=== PATIENT | female | born 1935 | race Caucasian/White ===

== ENCOUNTER 2023-10-04 14:10 | Outpatient (CLI) | payer MEDICARE, SELFPAY ==
[2023-10-04 18:42] LABS: Basophils Percent Auto 0.4 % (0.2-1.2); Eosinophils Absolute Auto 0.2 K/mm3 (0-0.3); Eosinophils Percent Auto 1.7 % (0-4.4); Hematocrit 37.3 % (37.0-47.0); Hemoglobin 11.3 g/dL (12.0-15.0); Immature Granulocyte Absolute 0.03 K/mm3 (0.00-0.031); Immature Granulocyte Percent A 0.3 % (0-0.5); Lymphocytes Absolute Auto 2.18 K/mm3 (0.9-3.2); Lymphocytes Percent Auto 20.4 % (18.3-44.2); Mean Corpuscular HGB Conc 30.3 g/dl (32-36); Mean Corpuscular Hemoglobin 30.3 pg (26-34); Mean Platelet Volume 10.5 fl (7.4-10.4); Monocytes Absolute Auto 0.8 K/mm3 (0.1-0.6); Monocytes Percent Auto 7.1 % (2.6-8.5); Neutrophils Absolute Auto 7.5 K/mm3 (1.3-6.7); Neutrophils Percent Auto 70.1 % (45.5-73.1); Nucleated Red Blood Cells Perc 0.3 % (0.0-0.2); Platelet Count Result 183 k/mm3 (150-375); Red Blood Count 3.73 M/mm3 (4.2-5.4); Red Cell Distribution Width 14.2 % (11.5-14.5); White Blood Count 10.7 K/mm3 (4.5-10.0)
[2023-10-04 19:11] LABS: Alanine Aminotransferase 26 U/L (6-35); Albumin Level 4.6 g/dL (3.5-5.1); Alkaline Phosphatase 88 U/L (38-126); Anion Gap 8 mmol/L (8-16); Aspartate Amino Transferase 73 U/L (14-36); Blood Urea Nitrogen 42 mg/dL (7-17); Calcium 10.1 mg/dL (8.4-10.2); Carbon Dioxide 27 mmol/L (22-30); Chloride 103 mmol/L (98-107); Estimated Glomerular Filt Rate 47; Glucose 91 mg/dL (65-110); Potassium 5.6 mmol/L (3.4-5.0); Sodium 138 mmol/L (137-145)
== END 2023-10-04 14:11 | disposition home or self-care (01) ==
PROVIDERS: PCP Internal Medicine; Visit Provider Nurse Practitioner
DX: D64.9 Anemia, unspecified (principal); I10 Essential (primary) hypertension; E55.9 Vitamin D deficiency, unspecified
CPT/HCPCS: 36415; 80053; 82607; 82728; 84443; 85025

== ENCOUNTER 2023-10-05 10:50 | Outpatient (CLI) | payer MEDICARE, SELFPAY ==
[2023-10-05 11:25] LABS: Basophils Percent Auto 0.6 % (0.2-1.2); Eosinophils Absolute Auto 0.2 K/mm3 (0-0.3); Eosinophils Percent Auto 2.8 % (0-4.4); Hemoglobin 11.7 g/dL (12.0-15.0); Immature Granulocyte Absolute 0.03 K/mm3 (0.00-0.031); Immature Granulocyte Percent A 0.4 % (0-0.5); Lymphocytes Percent Auto 23.6 % (18.3-44.2); Mean Corpuscular HGB Conc 30.8 g/dl (32-36); Mean Corpuscular Hemoglobin 30.5 pg (26-34); Mean Platelet Volume 9.8 fl (7.4-10.4); Monocytes Absolute Auto 0.5 K/mm3 (0.1-0.6); Monocytes Percent Auto 6.4 % (2.6-8.5); Neutrophils Absolute Auto 4.8 K/mm3 (1.3-6.7); Neutrophils Percent Auto 66.2 % (45.5-73.1); Platelet Count Result 169 k/mm3 (150-375); Red Blood Count 3.84 M/mm3 (4.2-5.4); Red Cell Distribution Width 14.2 % (11.5-14.5); White Blood Count 7.2 K/mm3 (4.5-10.0)
[2023-10-05 11:36] LABS: Anion Gap 6 mmol/L (8-16); Blood Urea Nitrogen 37 mg/dL (7-17); Calcium 9.9 mg/dL (8.4-10.2); Carbon Dioxide 32 mmol/L (22-30); Chloride 102 mmol/L (98-107); Estimated Glomerular Filt Rate 52; Glucose 98 mg/dL (65-110); Potassium 4.6 mmol/L (3.4-5.0); Sodium 140 mmol/L (137-145)
[2023-10-05 12:33] LABS: Vitamin D 25 Hydroxy 69.2 ng/mL
[2023-10-05 13:59] LABS: Iron 94 ug/dL (37-170)
[2023-10-05 14:09] LABS: Percent Iron Saturation 26 % (20-50)
== END 2023-10-05 10:51 | disposition home or self-care (01) ==
LOC: ANHLAB 10:53
PROVIDERS: PCP Internal Medicine; Visit Provider Nurse Practitioner
DX: E55.9 Vitamin D deficiency, unspecified (principal); E87.5 Hyperkalemia; I10 Essential (primary) hypertension; D64.9 Anemia, unspecified
CPT/HCPCS: 36415; 80048; 82306; 83540; 83550; 85025

== ENCOUNTER 2023-11-28 11:08 | Outpatient (CLI) | payer MEDICARE, SELFPAY ==
[2023-11-28 11:44] LABS: Cholesterol 129 mg/dL (0-200); HDL Direct 61 mg/dL; Triglycerides 95 mg/dL (<150)
[2023-11-28 11:54] LABS: LDL Cholesterol Direct 52 mg/dL
== END 2023-11-28 11:09 | disposition home or self-care (01) ==
LOC: ANHLAB 11:09
PROVIDERS: PCP Internal Medicine; Visit Provider Internal Medicine Cardiovascular Disease
DX: E78.5 Hyperlipidemia, unspecified (principal)
CPT/HCPCS: 36415; 80061

== ENCOUNTER 2023-12-07 12:16 | Outpatient (CLI) | payer MEDICARE, SELFPAY ==
--- NOTE | 2023-12-07 12:30 | ECHO_ITS ---
Patient Info Name: Germaine Mancia Age: 88 years : 1935 Gender: Female Ht: 62 in Wt: 120 lbs BSA: 1.55 m2 HR: 81 bpm BP: 190 / 90 mmHg Heart Rhythm: Sinus Rhythm Technical Quality: Good Exam Date: 12/07/2023 12:55 PM Exam Location: Echo Lab Patient Status: Outpatient Admit Date: 12/07/2023 Staff Ordering Physician: Neri Page DO Professor Of Marketing: Brent Nunn RDCS Attending Provider: Neri Page DO Referring Physician: Camilo TORO; Exam Type: CA echo doppler color flow Study Info Indications - obstuctive hypertropic cardiomyopathy Complete two-dimensional, color flow and Doppler transthoracic echocardiogram is performed. Summary 1. Complete two-dimensional, color flow and Doppler transthoracic echocardiogram is performed. 2. Left ventricular chamber dimension is normal. 3. Ventricular septum is mildly sigmoid shaped. There is mild resting LOVT obstruction with peak gradient 18 mmHg and mean gradient 13 mmHg suggestive of hypertrophic cardiomyopathy. 4. Left ventricular systolic function is normal, estimated at 60-65%. 5. The left ventricular diastolic function is grade I diastolic dysfunction. 6. E/e' 21 is elevated. 7. There is mild aortic valve sclerosis. 8. There is mild aortic valve regurgitation. 9. The mitral valve has mildly calcified annulus. 10. There is mild mitral valve regurgitation. 11. There is mild tricuspid valve regurgitation. 12. No pulmonary hypertension, estimated pulmonary arterial systolic pressure is 34 mmHg. Left Ventricle E/e' 21 is elevated. Ventricular septum is mildly sigmoid shaped. There is mild resting LOVT obstruction with peak gradient 18 mmHg and mean gradient 13 mmHg suggestive of hypertrophic cardiomyopathy. Left ventricular chamber dimension is normal. Left ventricular systolic function is normal, estimated at 60-65%. The left ventricular diastolic function is grade I diastolic dysfunction. Right Ventricle Right ventricular systolic function is normal and with normal TAPSE 2.7 cm. Right ventricular chamber dimension is normal. Left Atria Left atrial chamber dimension is normal. Right Atria Right atrial chamber dimension is normal. Aortic Valve The aortic valve is trileaflet. There is mild aortic valve sclerosis. There is no aortic valve stenosis. There is mild aortic valve regurgitation. Pulmonic Valve There is no pulmonic regurgitation. Mitral Valve The mitral valve has mildly calcified annulus. There is no mitral valve stenosis. There is mild mitral valve regurgitation. Tricuspid Valve There is mild tricuspid valve regurgitation. No pulmonary hypertension, estimated pulmonary arterial systolic pressure is 34 mmHg. Pericardium/Pleural There is no pericardial effusion. Inferior Vena Cava Normal inferior vena cava with >50% collapse upon inspiration consistent with normal right atrial pressure, 5 mmHg. Aorta The aortic root size at the sinus of Valsalva is normal. Left Ventricular Outflow Tract Name Value Normal LVOT 2D LVOT Diameter 1.8 cm LVOT Doppler LVOT Peak Gradient 15 mmHg LVOT Mean Gradient 10 mmHg LVOT VTI 56 cm LVOT VT
== END 2023-12-07 12:17 | disposition home or self-care (01) ==
LOC: ANHCARD 12:19
PROVIDERS: PCP Internal Medicine; Visit Provider Internal Medicine Cardiovascular Disease
DX: I42.1 Obstructive hypertrophic cardiomyopathy (principal); G95.89 Other specified diseases of spinal cord; I08.3 Combined rheumatic disorders of mitral, aortic and tricuspid valves
CPT/HCPCS: 93306

== ENCOUNTER 2024-02-08 10:23 | Outpatient (CLI) | payer MEDICARE, SELFPAY ==
[2024-02-08 11:30] LABS: Basophils Absolute Auto 0.1 K/mm3 (0.0-0.1); Basophils Percent Auto 0.6 % (0.2-1.2); Eosinophils Absolute Auto 0.4 K/mm3 (0-0.3); Eosinophils Percent Auto 4.3 % (0-4.4); Hematocrit 33.8 % (37.0-47.0); Hemoglobin 10.4 g/dL (12.0-15.0); Immature Granulocyte Absolute 0.04 K/mm3 (0.00-0.031); Immature Granulocyte Percent A 0.4 % (0-0.5); Lymphocytes Percent Auto 16.9 % (18.3-44.2); Mean Corpuscular HGB Conc 30.8 g/dl (32-36); Mean Corpuscular Hemoglobin 30.1 pg (26-34); Mean Platelet Volume 10.4 fl (7.4-10.4); Monocytes Absolute Auto 0.8 K/mm3 (0.1-0.6); Monocytes Percent Auto 8.7 % (2.6-8.5); Neutrophils Absolute Auto 6.2 K/mm3 (1.3-6.7); Neutrophils Percent Auto 69.1 % (45.5-73.1); Platelet Count Result 169 k/mm3 (150-375); Red Blood Count 3.45 M/mm3 (4.2-5.4); Red Cell Distribution Width 14.4 % (11.5-14.5); White Blood Count 8.9 K/mm3 (4.5-10.0)
[2024-02-08 11:41] LABS: Alanine Aminotransferase 26 U/L (6-35); Albumin Level 4.5 g/dL (3.5-5.1); Alkaline Phosphatase 98 U/L (38-126); Anion Gap 7 mmol/L (4-12); Aspartate Amino Transferase 45 U/L (14-36); Bilirubin,Total 0.7 mg/dL (0.2-1.3); Blood Urea Nitrogen 42 mg/dL (7-17); Calcium 9.9 mg/dL (8.4-10.2); Carbon Dioxide 29 mmol/L (22-30); Chloride 103 mmol/L (98-107); Estimated Glomerular Filt Rate 42; Glucose 90 mg/dL (65-110); Potassium 4.5 mmol/L (3.4-5.0); Sodium 139 mmol/L (137-145)
== END 2024-02-08 10:24 | disposition home or self-care (01) ==
PROVIDERS: PCP Internal Medicine; Visit Provider Nurse Practitioner
DX: R19.8 Other specified symptoms and signs involving the digestive system and abdomen (principal); K62.5 Hemorrhage of anus and rectum
CPT/HCPCS: 36415; 80053; 85025

== ENCOUNTER 2024-02-13 14:42 | Outpatient (CLI) | payer MEDICARE, SELFPAY ==
[2024-02-13 15:22] LABS: Basophils Absolute Auto 0.1 K/mm3 (0.0-0.1); Basophils Percent Auto 0.6 % (0.2-1.2); Eosinophils Absolute Auto 0.3 K/mm3 (0-0.3); Hematocrit 32.9 % (37.0-47.0); Hemoglobin 10.4 g/dL (12.0-15.0); Immature Granulocyte Absolute 0.03 K/mm3 (0.00-0.031); Immature Granulocyte Percent A 0.4 % (0-0.5); Lymphocytes Percent Auto 18.2 % (18.3-44.2); Mean Corpuscular HGB Conc 31.6 g/dl (32-36); Mean Corpuscular Hemoglobin 30.8 pg (26-34); Mean Corpuscular Volume 97.3 fl (80-100); Mean Platelet Volume 10.2 fl (7.4-10.4); Monocytes Absolute Auto 0.5 K/mm3 (0.1-0.6); Monocytes Percent Auto 6.5 % (2.6-8.5); Neutrophils Absolute Auto 5.4 K/mm3 (1.3-6.7); Neutrophils Percent Auto 70.3 % (45.5-73.1); Platelet Count Result 167 k/mm3 (150-375); Red Blood Count 3.38 M/mm3 (4.2-5.4); Red Cell Distribution Width 14.5 % (11.5-14.5); White Blood Count 7.7 K/mm3 (4.5-10.0)
== END 2024-02-13 14:43 | disposition home or self-care (01) ==
PROVIDERS: PCP Internal Medicine; Visit Provider Nurse Practitioner
DX: R19.8 Other specified symptoms and signs involving the digestive system and abdomen (principal)
CPT/HCPCS: 36415; 85025

== ENCOUNTER 2024-04-05 12:31 | Outpatient (CLI) | payer MEDICARE, SELFPAY ==
[2024-04-05 18:43] LABS: Basophils Percent Auto 0.6 % (0.2-1.2); Eosinophils Absolute Auto 0.2 K/mm3 (0-0.3); Eosinophils Percent Auto 2.8 % (0-4.4); Hematocrit 33.4 % (37.0-47.0); Hemoglobin 10.4 g/dL (12.0-15.0); Immature Granulocyte Absolute 0.02 K/mm3 (0.00-0.031); Immature Granulocyte Percent A 0.3 % (0-0.5); Immature Reticulocyte Fraction 11.8 % (3.0-15.9); Lymphocytes Absolute Auto 1.34 K/mm3 (0.9-3.2); Lymphocytes Percent Auto 19.1 % (18.3-44.2); Mean Corpuscular HGB Conc 31.1 g/dl (32-36); Mean Corpuscular Hemoglobin 30.4 pg (26-34); Mean Corpuscular Volume 97.7 fl (80-100); Mean Platelet Volume 11.8 fl (7.4-10.4); Monocytes Absolute Auto 0.5 K/mm3 (0.1-0.6); Monocytes Percent Auto 7.3 % (2.6-8.5); Neutrophils Absolute Auto 4.9 K/mm3 (1.3-6.7); Neutrophils Percent Auto 69.9 % (45.5-73.1); Platelet Count Result 138 k/mm3 (150-375); Red Blood Count 3.42 M/mm3 (4.2-5.4); Red Cell Distribution Width 13.9 % (11.5-14.5); Reticulocyte Hemoglobin Conten 33.6 pg (28.2-36.6); Reticulocyte Percent 0.97 % (0.7-4.3); Reticulocytes Absolute 0.03 10^6/uL (0.02-0.10)
[2024-04-05 18:56] LABS: Iron 110 ug/dL (37-170)
[2024-04-05 19:05] LABS: Percent Iron Saturation 28 % (20-50)
[2024-04-05 19:13] LABS: Alanine Aminotransferase 26 U/L (6-35); Albumin Level 4.4 g/dL (3.5-5.1); Alkaline Phosphatase 83 U/L (38-126); Anion Gap 8 mmol/L (4-12); Aspartate Amino Transferase 45 U/L (14-36); Bilirubin,Total 0.5 mg/dL (0.2-1.3); Blood Urea Nitrogen 43 mg/dL (7-17); Calcium 9.8 mg/dL (8.4-10.2); Carbon Dioxide 29 mmol/L (22-30); Chloride 101 mmol/L (98-107); Estimated Glomerular Filt Rate 39; Glucose 81 mg/dL (65-110); Potassium 4.7 mmol/L (3.4-5.0); Sodium 138 mmol/L (137-145)
== END 2024-04-05 12:32 | disposition home or self-care (01) ==
LOC: ANHGOSHLAB 12:33
PROVIDERS: PCP Internal Medicine; Visit Provider Nurse Practitioner
DX: D64.9 Anemia, unspecified (principal); I10 Essential (primary) hypertension
CPT/HCPCS: 36415; 80053; 82728; 83540; 83550; 85025; 85046

== ENCOUNTER 2024-04-10 00:20 | Day surgery (SDC) | payer MEDICARE, SELFPAY ==
[2024-03-27 14:21] VITALS: BMI 22.1
[2024-04-10 11:05] VITALS: BMI 22.4
[2024-04-10 11:08] VITALS: BP 191/79; PULSE 86; RESP 18; TEMP 36.4; O2SAT 96
[2024-04-10] MEDS: LACTATED RINGERS 1,000 ML 150 ML IV CONT (11:11)
--- NOTE | 2024-04-10 11:32 | WPDANESEPPF ---
Anes - Initial Pre Proc Eval Procedure: Operation Date: 04/10/24 12:30 Proposed Procedures p Esophagogastroduodenoscopy - Daryn Steele MD Date/Time: 04/10/24 11:32 Surgeon: Daryn Steele MD Pre Op Diagnosis: GERD without esophagitis, Gastricis unspecified wi Patient Data Age: 88 Gender: F Height: 1.57 m Weight: 55.7 kg Last Vital Signs Temp 36.4 C 04/10/24 11:08 Pulse 86 04/10/24 11:08 Resp 18 04/10/24 11:08 BP 191/79 H 04/10/24 11:08 Pulse Ox 96 04/10/24 11:08 O2 Del Method Room Air 04/10/24 11:08 Allergies Allergy/AdvReac Type Severity Reaction Status Date / Time albuterol AdvReac Intermediate SOB Verified 04/10/24 11:04 Home Medications Medication Instructions Recorded Confirmed Type acetaminophen 325 mg capsule 325 mg PO Q6H PRN Pain 03/08/23 04/10/24 History (Tylenol) calcium carb-ergocalciferol (vit 1 tablet PO DAILY 03/08/23 04/10/24 History D2) 600 mg calcium-200 unit tablet djstrxsw-lsj-wmcce acid 0.4 1 tablet PO DAILY 03/08/23 04/10/24 History mg-lycopene 300 mcg-lutein 250 mcg tablet (Centrum Silver) omega 4-rfo-wux-fish oil 60 mg-90 1 cap PO DAILY 10/04/23 04/10/24 History mg-500 mg capsule (Fish Oil) atorvastatin 10 mg tablet 10 mg PO DAILY #90 tabs 12/15/23 04/10/24 Rx gabapentin 100 mg capsule 100 mg PO QHS #90 caps 01/12/24 04/10/24 Rx metoprolol succinate 25 mg See Rx Instructions .Route 01/15/24 04/10/24 Rx tablet,extended release 24 hr .COMPLEX #90 tabs omeprazole 40 mg capsule,delayed 40 mg PO DAILY #30 caps 02/19/24 04/10/24 Rx release loratadine 10 mg tablet (Claritin) 10 mg PO DAILY #90 tabs 03/14/24 04/10/24 Rx mupirocin 2 % topical ointment 1 applic topical BID #15 grams 04/10/24 04/10/24 Rx Patient hx anesthesia problems: none Family hx anesthesia problems: none Results Review: All pre-operative results and documents have been reviewed as part of the pre-operative evaluation. [facility] Past Medical History Medical History Anemia Arthritis COPD (chronic obstructive pulmonary disease) Hypertension LPRD (laryngopharyngeal reflux disease) Surgical History Surgical History H/O cataract removal with insertion of prosthetic lens H/O: hysterectomy History of bilateral carpal tunnel release History of right hip replacement Hx of appendectomy Family History Family History Father Alcoholism Mother Hypertension Social History Social History Years smoked: 40 Smoking status: Former smoker Alcohol intake: never Substance use: never Substance use type: does not use Do You Feel Safe in your Home?: Yes Lack of Transportation: No Lack of Food: Never True Current Housing: I Have Housing Concerned About Future Housing: No Difficulty Paying Gas/Electric Bills: No Difficulty Paying for Meds: No Currently Unemployed: No Education: Grade School Difficulty w/ Childcare or Family Care: No Living arrangements: with family Occupation/Education: retired Gender identity (if verbalized by the patient): Female Spiritual care concerns: No Agree to blood products: Yes Anes - Eval Final PreProcedure Day of Procedure 04/10/24 11:32 Patient weight: normal Heart: regular rate and rhythm Lungs: clear to auscultation Airway: Mallampati scale class II Neurological: alert and oriented Last oral intake: >/= 8 hours ASA classification: III Emergent: no Anesthetic plan: proceed Anesthesia type and monitoring: general GIVS and standard monitoring Results Review: All pre-operative results and documents have been reviewed as part of the pre-operative evaluation. Informed Consent: The patient's anesthetic plan and its attendant risks and benefits were discussed
--- NOTE | 2024-04-10 11:46 | PM.HPGS ---
History of Present Illness History of Present Illness Consent: Risks, benefits, and alternatives have been discussed and questions answered. Patient agrees to proceed with procedure. Chief complaint: GERD without esophagitis, Gastricis unspecified wi Narrative: Germaine Mancia is a 88 year old female with gerd on omeprazole, last egd 2021 showed some esophagitis. Review of Systems Review of Systems: All systems reviewed & are unremarkable except as noted in HPI and below PMFSH Past Medical History Medical History Anemia Arthritis COPD (chronic obstructive pulmonary disease) Hypertension LPRD (laryngopharyngeal reflux disease) Surgical History Surgical History H/O cataract removal with insertion of prosthetic lens H/O: hysterectomy History of bilateral carpal tunnel release History of right hip replacement Hx of appendectomy Family History Family History Father Alcoholism Mother Hypertension Social History Social History Years smoked: 40 Smoking status: Former smoker Alcohol intake: never Substance use: never Substance use type: does not use Do You Feel Safe in your Home?: Yes Lack of Transportation: No Lack of Food: Never True Current Housing: I Have Housing Concerned About Future Housing: No Difficulty Paying Gas/Electric Bills: No Difficulty Paying for Meds: No Currently Unemployed: No Education: Grade School Difficulty w/ Childcare or Family Care: No Living arrangements: with family Occupation/Education: retired Gender identity (if verbalized by the patient): Female Spiritual care concerns: No Agree to blood products: Yes Meds Home Medications and Allergies Home Medications Medication Instructions Recorded Confirmed Type acetaminophen 325 mg capsule 325 mg PO Q6H PRN Pain 03/08/23 04/10/24 History (Tylenol) calcium carb-ergocalciferol (vit 1 tablet PO DAILY 03/08/23 04/10/24 History D2) 600 mg calcium-200 unit tablet xbglcmtb-gcb-wegxv acid 0.4 1 tablet PO DAILY 03/08/23 04/10/24 History mg-lycopene 300 mcg-lutein 250 mcg tablet (Centrum Silver) omega 2-eqt-tbi-fish oil 60 mg-90 1 cap PO DAILY 10/04/23 04/10/24 History mg-500 mg capsule (Fish Oil) atorvastatin 10 mg tablet 10 mg PO DAILY #90 tabs 12/15/23 04/10/24 Rx gabapentin 100 mg capsule 100 mg PO QHS #90 caps 01/12/24 04/10/24 Rx metoprolol succinate 25 mg See Rx Instructions .Route 01/15/24 04/10/24 Rx tablet,extended release 24 hr .COMPLEX #90 tabs omeprazole 40 mg capsule,delayed 40 mg PO DAILY #30 caps 02/19/24 04/10/24 Rx release loratadine 10 mg tablet (Claritin) 10 mg PO DAILY #90 tabs 03/14/24 04/10/24 Rx mupirocin 2 % topical ointment 1 applic topical BID #15 grams 04/10/24 04/10/24 Rx Allergies Allergy/AdvReac Type Severity Reaction Status Date / Time albuterol AdvReac Intermediate SOB Verified 04/10/24 11:04 Vital Signs Vital Signs - 24 hr 04/10/24 11:08 Temperature 97.6 F Pulse Rate 86 Respiratory Rate 18 Blood Pressure 191/79 H Pulse Oximetry 96 Oxygen Delivery Room Air Exam Const: General: comfortable and no acute distress HENMT: Face/Nose/Sinus: Normal nares present Eyes: General: appearance normal, both eyes and all related structures Neck: Neck: no JVD Resp: Auscultation: clear to auscultation bilaterally Cardio: Rate: regular rate Rhythm: regular rhythm GI: Inspection: non-distended GI Palp: Yes Soft to palpation Skin: General skin exam: normal color Neuro: General: gait normal Speech: normal speech Extrem: General: normal to inspection Psych: Mental Status: mental status grossly normal Assessment and Plan Assessment and plan (1) GERD with esophagitis: Qualifiers: Esophagitis bleedin
[2024-04-10 11:54] VITALS: BP 149/66; PULSE 68; RESP 21; O2SAT 99
[2024-04-10 12:04] VITALS: BP 156/68; PULSE 70; RESP 21; O2SAT 96
[2024-04-10 12:14] VITALS: BP 170/62; PULSE 70; RESP 20; O2SAT 96
== END 2024-04-10 12:25 | disposition home or self-care (01) ==
PROVIDERS: PCP Internal Medicine; Referring Provider Nurse Practitioner Family; Visit Provider Internal Medicine Gastroenterology
PROC: 0DJ08ZZ Inspection of Upper Intestinal Tract, Via Natural or Artificial Opening Endoscopic (ICD-10-PCS; CPT 43235; principal; 2024-04-10 12:30)
DX: K21.9 Gastro-esophageal reflux disease without esophagitis (principal); I10 Essential (primary) hypertension; J44.9 Chronic obstructive pulmonary disease, unspecified; Z87.891 Personal history of nicotine dependence; Z87.19 Personal history of other diseases of the digestive system
CPT/HCPCS: 43235; J2704; J7120

== ENCOUNTER 2024-05-08 14:08 | Outpatient (CLI) | payer MEDICARE, SELFPAY ==
[2024-05-08 18:53] LABS: Basophils Percent Auto 0.6 % (0.2-1.2); Eosinophils Absolute Auto 0.2 K/mm3 (0-0.3); Eosinophils Percent Auto 2.5 % (0-4.4); Hemoglobin 11.2 g/dL (12.0-15.0); Immature Granulocyte Absolute 0.02 K/mm3 (0.00-0.031); Immature Granulocyte Percent A 0.3 % (0-0.5); Lymphocytes Absolute Auto 1.13 K/mm3 (0.9-3.2); Lymphocytes Percent Auto 15.7 % (18.3-44.2); Mean Corpuscular Hemoglobin 30.7 pg (26-34); Mean Corpuscular Volume 95.9 fl (80-100); Mean Platelet Volume 11.3 fl (7.4-10.4); Monocytes Absolute Auto 0.4 K/mm3 (0.1-0.6); Monocytes Percent Auto 5.6 % (2.6-8.5); Neutrophils Absolute Auto 5.4 K/mm3 (1.3-6.7); Neutrophils Percent Auto 75.3 % (45.5-73.1); Platelet Count Result 156 k/mm3 (150-375); Red Blood Count 3.65 M/mm3 (4.2-5.4); Red Cell Distribution Width 13.7 % (11.5-14.5); White Blood Count 7.2 K/mm3 (4.5-10.0)
[2024-05-08 19:21] LABS: Anion Gap 9 mmol/L (4-12); Blood Urea Nitrogen 36 mg/dL (7-17); Calcium 9.6 mg/dL (8.4-10.2); Carbon Dioxide 26 mmol/L (22-30); Chloride 104 mmol/L (98-107); Estimated Glomerular Filt Rate 39; Glucose 89 mg/dL (65-110); Potassium 4.3 mmol/L (3.4-5.0); Sodium 139 mmol/L (137-145)
== END 2024-05-08 14:09 | disposition home or self-care (01) ==
LOC: ANHGOSHLAB 14:09
PROVIDERS: PCP Internal Medicine; Visit Provider Nurse Practitioner
DX: N18.9 Chronic kidney disease, unspecified (principal); I10 Essential (primary) hypertension; D64.9 Anemia, unspecified
CPT/HCPCS: 36415; 80048; 85025

== ENCOUNTER 2024-12-19 12:18 | Outpatient (CLI) | payer MEDICARE, SELFPAY ==
--- NOTE | 2024-12-19 12:36 | ECHO_ITS ---
Patient Info Name: Germaine Mancia Age: 89 years : 1935 Gender: Female Ht: 62 in Wt: 118 lbs BSA: 1.53 m2 HR: 66 bpm BP: 152 / 89 mmHg Technical Quality: Good Exam Date: 12/19/2024 12:50 PM Exam Location: Echo Lab Patient Status: Outpatient Admit Date: 12/19/2024 Staff Ordering Physician: Neri Page DO Desktop Analyst: Yanni Zafar RDCS Attending Provider: Neri Page DO Referring Physician: Camilo TORO; Exam Type: CA echo doppler color flow Study Info Indications I42.1 - Obstructive hypertrophic cardiomyopathy Complete two-dimensional, color flow and Doppler transthoracic echocardiogram is performed. Summary 1. Complete two-dimensional, color flow and Doppler transthoracic echocardiogram is performed. 2. Left ventricular chamber dimension is normal. 3. Left ventricular systolic function is hyperdynamic, estimated at >70%. 4. There is moderate asymmetric septal increased left ventricular wall thickness with septum 1.8 cm vs posterior wall at 1.4 cm. Resting LVOT gradient max 22 mmHg and mean 13 mmHg suggestive of mild-moderate hypertrophic cardiomyopathy. 5. The left ventricular diastolic function is grade I diastolic dysfunction. 6. E/e' 16 is elevated. 7. Left atrial chamber dimension is mildly enlarged. 8. There is mild aortic valve sclerosis. 9. There is trace aortic valve regurgitation. 10. The mitral valve has mildly calcified annulus. 11. There is mild mitral valve regurgitation. 12. There is trace tricuspid valve regurgitation. 13. No pulmonary hypertension, estimated pulmonary arterial systolic pressure is 31 mmHg. Left Ventricle There is moderate asymmetric septal increased left ventricular wall thickness with septum 1.8 cm vs posterior wall at 1.4 cm. Resting LVOT gradient max 22 mmHg and mean 13 mmHg suggestive of mild-moderate hypertrophic cardiomyopathy. E/e' 16 is elevated. Left ventricular chamber dimension is normal. Left ventricular systolic function is hyperdynamic, estimated at >70%. The left ventricular diastolic function is grade I diastolic dysfunction. Right Ventricle Right ventricular systolic function is normal and with normal TAPSE 1.9 cm. Right ventricular chamber dimension is normal. Left Atria Left atrial chamber dimension is mildly enlarged. Right Atria Right atrial chamber dimension is normal. Aortic Valve The aortic valve is trileaflet. There is mild aortic valve sclerosis. There is no aortic valve stenosis. There is trace aortic valve regurgitation. Pulmonic Valve There is no pulmonic regurgitation. Mitral Valve The mitral valve has mildly calcified annulus. There is no mitral valve stenosis. There is mild mitral valve regurgitation. Tricuspid Valve There is trace tricuspid valve regurgitation. No pulmonary hypertension, estimated pulmonary arterial systolic pressure is 31 mmHg. Pericardium/Pleural There is no pericardial effusion. Inferior Vena Cava Normal inferior vena cava with >50% collapse upon inspiration consistent with normal right atrial pressure, 5 mmHg. Aorta The aortic root size at the sinus of Valsalva is normal. Left Ventricular Outflow Tract Name Value Normal LVOT 2D LVOT Diameter 1.8 cm LVOT Doppler LVOT Peak Gradient 18 mmHg LVOT Mean Gradient 13 mmHg LVOT VTI 60 cm LVOT VTI/AV VTI Ratio 1.0 LVOT Stroke Volume 151 ml LVOT CO 26.0 l/min LVOT CI 17.0 l/min/m2 Pulmonic Valve Name Value Normal PV Doppler PV Peak Gradient 4 mmHg Mitral Valve Name Value Normal MV Doppler MV Decel [place]ett 318 cm/s2 MV PHT 86 ms MV Area (PHT) 2.6 cm2 4.0-5.0 MV Diastolic Function MV E Peak Velocity 94 cm/s MV A Peak Velocity 101 cm/s MV E/A 0.9 MV Decel Time 296 ms MV Annular TDI MV E/e' (Septal) 18.0 <=8.0 MV E/e' (Lateral) 15.3 <=8.0 MV E/e' (Average) 16.6 Tricuspid Valve Name Value Normal TV Regurgitation Doppler TR Peak Velocity 257 cm/s TR Peak Gradient 23 mmHg Estimated PAP/RSVP RA Pressure 5 mmHg <=5 PA Systolic Pressure 31 mmHg <36 RV Systolic Pressure 31 mmHg <36 Aorta Name Value Normal Ascending Aorta Ao Root Diameter (MM) 3.2 cm Ao Root Diam Index (MM) 2.1 cm/m2 Aortic Valve Name Value Normal AV Doppler AV Peak Velocity 233 cm/s AV Peak Gradient 22 mmHg AV Mean Gradient 14 mmHg AV VTI 58 cm AV Area (Cont Eq VTI) 2.6 cm2 >=3.0 AV Area (Cont Eq Ernesto) 2.5 cm2 AV Regurgitation 2D LVOT Area 2.5 cm2 Ventricles Name Value Normal LV Dimensions 2D/MM IVS Diastolic Thickness (2D) 1.8 cm 0.6-1.0 LVID Diastole (2D) 2.9 cm 3.8-5.2 LVIW Diastolic Thickness (2D) 1.4 cm 0.6-0.9 LVID Systole (2D) 1.8 cm 2.2-3.5 LVOT Diameter 1.8 cm LV Mass (2D Cubed) 162.39 g 67.00-162.00 LV Mass Index (2D Cubed) 106 g/m2 43-95 Relative Wall Thickness (2D) 0.94 LV Fractional Shortening/Ejection Fraction 2D/MM LV Fractional Shortening (2D) 36 % 27-45 LV EF (2D Teicholz) 68 % 54-74 LV Diastolic Volume (4C MOD) 46 ml LV EF (4C MOD) 74 % LV Diastolic Volume (2C MOD) 56 ml LV EF (2C MOD) 77 % LV Diastolic Volume (BP MOD) 53 ml 46-106 LV Diastolic Volume Index (BP MOD) 35 ml/m2 29-61 LV Systolic Volume (BP MOD) 13 ml 14-42 LV Systolic Volume Index (BP MOD) 9 ml/m2 8-24 LV EF (BP MOD) 75 % 54-74 LV Diastolic Length (4C) 6.8 cm LV Systolic Length (4C) 4.9 cm LV Stroke Volume (4C MOD) 34 ml Atria Name Value Normal LA Dimensions LA Dimension (MM) 3.7 cm 2.7-3.8 LA Volume (4C A-L) 35 ml LA Volume (BP A-L) 40 ml RA Dimensions RA Area (4C) 9.1 cm2 <=18.0 Report Signatures
--- OUTSIDE RECORDS SUMMARY | 2024-12-19 12:40 | XMS_ITS | CONTINUITY OF CARE DOCUMENT ---
Author Name [email or web address] Address Unknown Organization [facility] Address [address] [place] [address] Phone [phone] Care Team Providers Care Print Color Matcher Name Role Phone Brian [employer], Patrick Unavailable Demarcus Guerrero MD Unavailable Demarcus Guerrero MD Unavailable [phone] INSURANCE PROVIDERS Payer name Policy type / Coverage type [place] [id number] PPO O [id number]
== END 2024-12-19 12:19 | disposition home or self-care (01) ==
PROVIDERS: PCP Internal Medicine; Visit Provider Internal Medicine Cardiovascular Disease
DX: I42.1 Obstructive hypertrophic cardiomyopathy (principal); I51.89 Other ill-defined heart diseases; I35.8 Other nonrheumatic aortic valve disorders; I34.81 Nonrheumatic mitral (valve) annulus calcification; I34.0 Nonrheumatic mitral (valve) insufficiency
CPT/HCPCS: 93306

== ENCOUNTER 2025-05-12 07:55 | Outpatient (CLI) | payer MEDICARE, SELFPAY ==
--- NOTE | ~2025-05-12 | NM_ITS ---
EXAMINATION: NM kimani stress w perfusion DATE: 05/12/2025 10:39 CDT INDICATION: Dyspnea TECHNIQUE: Rest images were obtained following intravenous administration of 10.8 mCi Tc99m tetrofosmin (Myoview). The patient was infused intravenously with Lexiscan (regadenoson). Then, 33.3 mCi Tc99m tetrofosmin (Myoview) was administered intravenously, and stress images were obtained. Data was garcia nstructed into short axis and horizontal and vertical long axis SPECT images. Gated SPECT images were also obtained. COMPARISON: None. FINDINGS: There is no definite reversible or fixed perfusion abnormality to suggest ischemia or infarction. There is no segmental wall motion abnormality. Left ventricular ejection fraction measures 79%. IMPRESSION: 1. No definite ischemia or infarct. 2. Normal left ventricular ejection fraction measuring 79%. Reviewed, dictated and finalized at location O.
--- NOTE | 2025-05-12 08:20 | EST_ITS ---
Patient Info Name: Germaine Mancia Age: 89 years : 1935 Gender: Female Ht: 62 in Wt: 121 lbs BSA: 1.55 m2 HR: 60 bpm BP: 218 / 71 mmHg Exam Date: 05/12/2025 8:20 AM Patient Status: O Admit Date: 05/12/2025 Exam Type: CA stress kimani w NM A regadenoson stress test was performed. Staff Referring Physician: Neri Page DO Attending Provider: Neri Page DO Exercise Technologist: Socorro Daniel Exercise Physician: Neri Page DO Summary 1. 1. Negative lexiscan stress test for ischemic ST changes by ECG criteria. 2. 2. Baseline hypertension. 3. 3. Nuclear scan to follow and will be reported separately. Please correlate with it. 4. 4. Patient informed of the above results. Protocol: Lexiscan Stress ECG Details Stage: REST Duration (min): 0 min : 56 sec HR (bpm): 60 SBP (mmHg): --- DBP (mmHg): --- Stage: REST Duration (min): 7 min : 21 sec HR (bpm): 62 SBP (mmHg): 218 DBP (mmHg): 71 Stage: STAGE 1 Duration (min): 1 min : 0 sec HR (bpm): 76 SBP (mmHg): 218 DBP (mmHg): 71 Stage: RECOVERY Duration (min): 1 min : 0 sec HR (bpm): 87 SBP (mmHg): 217 DBP (mmHg): 56 Stage: RECOVERY Duration (min): 2 min : 0 sec HR (bpm): 83 SBP (mmHg): 217 DBP (mmHg): 56 Stage: RECOVERY Duration (min): 3 min : 0 sec HR (bpm): 82 SBP (mmHg): 166 DBP (mmHg): 47 Stage: RECOVERY Duration (min): 3 min : 12 sec HR (bpm): 82 SBP (mmHg): 166 DBP (mmHg): 47 Rest HR: 62 bpm Peak HR: 87 bpm Rest Sys BP: 218 mmHg Peak Sys BP: 217 mmHg Max Pred HR: 131 bpm % Max Pred HR: 66 % Target HR: 111 bpm Max RPP: 18,879 bpm*mmHg Termination Reason: Completed protocol Cardiac Symptoms: Shortness of breath Total Time: 1 min : 0 sec Rest [place] BP: 71 mmHg Peak [place] BP: 56 mmHg Total Dose: 0.4 mg Resting ECG Sinus rhythm, RBBB. Stress ECG No ST changes. Arrhythmias None. Report Signatures
== END 2025-05-12 07:56 | disposition home or self-care (01) ==
PROVIDERS: PCP Nurse Practitioner; Visit Provider Internal Medicine Cardiovascular Disease
DX: R06.09 Other forms of dyspnea (principal)
CPT/HCPCS: 78452; 93017; A9502; J2785